=== PATIENT | male | born 1995 | race Caucasian/White ===

== ENCOUNTER 2021-11-03 15:43 | Emergency (ER) | payer SELFPAY ==
[~2021-11-03] VITALS: Ht 185.4 cm; Wt 86.2 kg
[2021-11-03 19:13] VITALS: BP 145/90
== END 2021-11-03 19:12 | disposition home or self-care (01) ==
LOC: ER 15:43
DX: T41.0X1A Poisoning by inhaled anesthetics, accidental (unintentional), initial encounter (principal); R07.89 Other chest pain; F17.210 Nicotine dependence, cigarettes, uncomplicated; Y92.89 Other specified places as the place of occurrence of the external cause
CPT/HCPCS: 71046; 93005

== ENCOUNTER 2021-11-15 16:19 | Emergency (ER) | payer SELFPAY ==
[~2021-11-15] VITALS: Ht 185.4 cm; Wt 78.5 kg
[2021-11-15 17:36] VITALS: BP 135/84
[2021-11-15] MEDS ORDERED: IBUP800T27 PO (17:46)
== END 2021-11-15 17:51 | disposition home or self-care (01) ==
LOC: ER 16:19
DX: S39.012A Strain of muscle, fascia and tendon of lower back, initial encounter (principal); F17.210 Nicotine dependence, cigarettes, uncomplicated; F12.10 Cannabis abuse, uncomplicated; V43.52XA Car driver injured in collision with other type car in traffic accident, initial encounter; Y93.89 Activity, other specified; Y92.410 Unspecified street and highway as the place of occurrence of the external cause; Y99.8 Other external cause status
CPT/HCPCS: 72100